=== PATIENT | male | born 1945 | race Hispanic/Latino ===

== ENCOUNTER 2018-02-26 17:31 | Emergency (ER) | payer MEDICARE, MEDICAID ==
[2018-02-26 17:46] VITALS: BMI 26.6
--- NOTE | 2018-02-26 17:59 | C.PDOC ---
History Of Present Illness 72 y/o male with PMHx of seizure disorder, dementia, and Parkinsons, [facility] in [facility] ambulance [facility] for evaluation s/p witnessed seizure. On arrival patient is awake, alert, able to follow some commands. He denies any pain. States he took his VPA and Topamax this morning. Patient able to verbalize his own name and answers that he is at the hospital. Unable to obtain any other history from patient secondary to dementia. As per [facility] group sales representative ([phone]), patient has seemed progressively weaker over the past couple days. Today they were walking up stairs and as per nursing staff, patient was so weak he could not walk up, and they caught him before he could fall. Patient stated that he had a seizure but there was no seizure-like activity noted per nursing staff. PMD: Dr. Her Time Seen by Provider: 02/26/18 17:59 Chief Complaint (Nursing): Seizure History Per: Patient History/Exam Limitations: other (dementia) Recent Seizure Activity Began: Unknown Additional History Per: EMS, [facility] Past Medical History Reviewed: Historical Data, Nursing Documentation, Vital Signs Vital Signs: Last Vital Signs Temp 97.7 F 02/26/18 17:46 Pulse 90 02/26/18 17:46 Resp 18 02/26/18 17:46 BP 136/73 02/26/18 17:46 Pulse Ox 100 02/26/18 17:46 - Medical History PMH: Anxiety, Asthma, Dementia, Hepatitis (B), Hypercholesterolemia, Parkinson's Disease, Seizures Surgical History: No Surg Hx Family History: States: No Known Family Hx - Social History Hx Tobacco Use: No Hx Alcohol Use: No Hx Substance Use: No - Immunization History Hx Tetanus Toxoid Vaccination: No Hx Influenza Vaccination: No Hx Pneumococcal Vaccination: No Review Of Systems Review Of Systems: ROS cannot be obtained secondary to pt's inabilty to answer questions. Physical Exam - Physical Exam Appears: Non-toxic, No Acute Distress Skin: Warm, Dry Head: Atraumatic, Normacephalic Eye(s): bilateral: Normal Inspection, PERRL, EOMI Nose: Normal, No Flaring, No Discharge Throat: No Erythema Neck: Trachea Midline, Supple, Other (No meningeal signs- negative kernig's and brudzinskis) Chest: Symmetrical Cardiovascular: Rhythm Regular, Other (No rub) Respiratory: No Rales, No Rhonchi, No Wheezing Gastrointestinal/Abdominal: Soft, No Tenderness, No Distention Back: Normal Inspection, No CVA Tenderness Extremity: Bilateral: Normal Color And Temperature Pulses: Left Dorsalis Pedis: Normal, Right Dorsalis Pedis: Normal Neurological/Psych: Normal Cranial Nerves, No Cerebellar Signs, Normal Sensation, Other (Awake, Alert, responds to some commands) Disoriented To: Time, Situation Gait: With Assistance ED Course And Treatment - Laboratory Results Result Diagrams: 02/26/18 18:29 02/26/18 18:29 O2 Sat by Pulse Oximetry: 100 (RA) Pulse Ox Interpretation: Normal Medical Decision Making Medical Decision Making: Impression: 72 y/o M with pmhx of dementia, seizure disorder, Parkinson's, p/w complaint of seizure. As per [facility] staff, no seizure activity witnessed. They note patient seems progressively weaker over the past few days. No enuresis or tongue biting noted. Plan: Blood work UA EKG Chest x-ray CT Head CT C-spine IV fluids CXR: No active disease. EKG: Normal sinus rhythm at 86 bpm, no STEMI CT Head: 1. There is generalized parenchymal atrophy noted as demonstrated by symmetrical dilatation of ventricles and sulci. 2. Chronic periventricular and subcortical microvascular disease is seen. 3. No acute intracranial pathology. CT C-spine: 1. No fracture or spondylolisthesis. 2. Straightening of cervical lordosis is seen, suggesting muscular spasm. 3. Severe multilevel spondylosis. 4. Multiple mild chronic fractures involving C3 to C6 vertebral bodies. 2148 labs largely unremarkable Endorsed to Dr. Cartagena for possible observation given depakote level cannot be drawn at this time: Per Dr. Cartagena pt is clear for d/c home: Pt is feeling better and clear, regardless of current depakote level. Endorsed to Dr. Sales regarding depakote level availability- Per Neuro Pt is clear for d/c currently with current depakote dosage of 500mg TID, no changes at this time. Depakote level drawn. Per Neuro and IM: pt is clear for d/c. Per Belt Loop Machine Operator pt is at baseline mentation at this time. will check if patient can walk at baseline ? weakness 2216 ambulated at baseline w/ walker per Belt Loop Machine Operator: clear for d/c home. Disposition - Disposition Disposition Time: 21:53 Condition: GOOD Forms: [facility] (Yi) - Clinical Impression Clinical Impression: Seizure-like activity - Scribe Statement The provider has reviewed the documentation as recorded by the Scribe (Ellen Vasques) Provider Attestation: All medical record entries made by the Scribe were at my direction and personally dictated by me. I have reviewed the chart and agree that the record accurately reflects my personal performance of the history, physical exam, medical decision making, and the department course for this patient. I have also personally directed, reviewed, and agree with the discharge instructions and disposition.
[2018-02-26] MEDS ORDERED: Sodium Chloride 0.9% 1,000 ML IV SCH (18:15)
[2018-02-26 18:34] LABS: BASO % 0.3 % (0.0-2.0); EOS # 0.3 K/uL (0.0-0.7); EOS % 3.7 % (0.0-4.0); HEMOGLOBIN 13.3 g/dL (12.0-18.0); LYMPH # 4.1 K/uL (1.0-4.3); LYMPH % 51.7 % (20.0-40.0); MEAN CELL VOLUME 92.4 fL (80.0-94.0); MEAN CORPUSCULAR HEMOGLOBIN 31.2 pg (27.0-31.0); MEAN CORPUSCULAR HGB CONC 33.7 g/dL (33.0-37.0); MEAN PLATELET VOLUME 8.8 fL (7.2-11.7); MONO # 0.8 K/uL (0.0-0.8); MONO % 9.6 % (0.0-10.0); NEUT # 2.7 K/uL (1.8-7.0); NEUT % 34.7 % (50.0-75.0); NRBC % 0.1 % (0.0-2.0); RBC 4.26 Mil/uL (4.40-5.90); RED CELL DISTRIBUTION WIDTH 13.9 % (11.5-14.5); WHITE BLOOD COUNT 7.9 K/uL (4.8-10.8)
--- NOTE | 2018-02-26 18:37 | RAD ---
Date of service: 02/26/2018 HISTORY: fall COMPARISON: No prior. TECHNIQUE: Chest PA and lateral FINDINGS: LUNGS: Left basilar atelectasis/scarring. No focal consolidation. PLEURA: No significant pleural effusion identified. No pneumothorax apparent. CARDIOVASCULAR: Aortic atherosclerotic calcifications. Cardiomediastinal silhouette at the upper limits of normal in size. OSSEOUS STRUCTURES: Spinal degenerative changes. VISUALIZED UPPER ABDOMEN: Normal. OTHER FINDINGS: None. IMPRESSION: No active disease.
[2018-02-26 19:32] LABS: ALB/GLOB RATIO 1.3 (1.0-2.1); ALBUMIN 4.1 g/dL (3.5-5.0); ALT/SGPT 10 U/L (21-72); AST/SGOT 43 U/L (17-59); BLOOD UREA NITROGEN 20 mg/dL (9-20); CALCIUM 9.3 mg/dl (8.6-10.4); GFR NON-AFRICAN AMERICAN > 60
[2018-02-26 19:41] LABS: B-TYPE NATRIURETIC PEPTIDE 110 pg/mL (0-900)
[2018-02-26 20:39] LABS: URINE BILIRUBIN NEGATIVE (NEGATIVE); URINE BLOOD NEGATIVE (NEGATIVE); URINE CLARITY Clear (Clear); URINE COLOR Yellow (YELLOW); URINE GLUCOSE (UA) NORMAL (Normal); URINE LEUKOCYTE ESTERASE NEG Leu/uL (Negative); URINE PROTEIN NEGATIVE (NEGATIVE); URINE UROBILINOGEN NORMAL mg/dL (0.2-1.0)
[2018-02-26] MEDS ORDERED: Divalproex 500 mg ER Tab PO ONE (21:40)
[2018-02-26] MEDS ORDERED: Divalproex 500 mg DR Tab PO ONE (21:48)
[2018-02-26 22:07] VITALS: BP 139/90; PULSE 82; RESP 16; TEMP 97.6
[2018-02-26 22:19] VITALS: O2SAT 100
--- NOTE | 2018-02-27 13:51 | CT ---
Date of service: 02/26/2018 PROCEDURE: CT HEAD WITHOUT CONTRAST. HISTORY: fall COMPARISON: None available. TECHNIQUE: Axial computed tomography images were obtained through the head/brain without intravenous contrast. Radiation dose: Total exam DLP = 1191.91 mGy-cm. This CT exam was performed using one or more of the following dose reduction techniques: Automated exposure control, adjustment of the mA and/or kV according to patient size, and/or use of iterative reconstruction technique. FINDINGS: HEMORRHAGE: No intracranial hemorrhage. BRAIN: Good corticomedullary differentiation is seen. Proportional, diffuse expansion of the ventriculosulcal and cisternal spaces is appreciated with white matter lucency compatible with diffuse cerebral atrophy and chronic microangiopathy. No suspicious extra-axial fluid collection is identified and the midline brain anatomy appears grossly nonfocal as imaged. There is no mass effect throughout. VENTRICLES: Unremarkable. No hydrocephalus. CALVARIUM: No destructive bony lesion or displaced fracture identified including through the skullbase. PARANASAL SINUSES: Unremarkable as visualized. No significant inflammatory changes. MASTOID AIR CELLS: Unremarkable as visualized. No inflammatory changes. OTHER FINDINGS: None. IMPRESSION: Mild age-related degenerative changes are identified which appear age-appropriate. No definite acute intracranial findings. No fracture identified. Concordant preliminary report from [facility], 02/26/2018.
--- NOTE | 2018-02-27 14:02 | CT ---
Date of service: 02/26/2018 PROCEDURE: CT Cervical Spine without contrast HISTORY: fall COMPARISON: None available. TECHNIQUE: Axial computed tomography images were obtained of the cervical spine without the use of intravenous contrast. Coronal and sagittal reformatted images were created and reviewed. Radiation dose: Total exam DLP = 527.37 mGy-cm. This CT exam was performed using one or more of the following dose reduction techniques: Automated exposure control, adjustment of the mA and/or kV according to patient size, and/or use of iterative reconstruction technique. FINDINGS: VERTEBRAE: No fracture. Lordotic curvature is central weighted mildly by likely calcified thoracic spinal deformity.. No destructive bony lesion. DISCS/SPINAL CANAL/NEURAL FORAMINA: Multilevel degenerative spondylosis appreciate well as facet joint arthropathy. The C1-2 articulation also appears degenerated with the craniocervical junction intact. At C2-3, a disc osteophyte complex encroaches ventral nerve roots without causing significant central canal stenosis. Mild right but no left degenerative neural foraminal stenosis. At C3-4, there is an irregular disc osteophyte complex greater the right than left sides causing moderate central canal stenosis. Uncovertebral and facet arthropathy result in a severe right and moderate left degenerative neural foraminal stenosis.. At C4-5, an additional disc osteophyte complex is appreciated with small central disc protrusion abutting the ventral cord most likely. This results in a midline central stenosis with the lateral portions more patent than the midline. Uncovertebral and facet arthropathy causes moderate right and mild left degenerative neural foraminal stenosis At C5-6, a minimal disc osteophyte complex is appreciate without stenosis resulting. Moderate right and mild left degenerative neural foraminal stenoses are caused by osteophytes. At C6-7, a circumferential disc osteophyte complex is appreciate without significant central stenosis. Moderate right and moderate to severe left degenerative neural foraminal stenosis appreciated on degenerative basis. At C7-T1, there is a borderline right neural foraminal stenosis due to uncovertebral osteophytosis with none on the left. No disc herniation or central canal stenosis. PARASPINAL SOFT TISSUES: Unremarkable. OTHER FINDINGS: None. IMPRESSION: No acute fracture or spondylolisthesis identified. Advanced multilevel uncovertebral and facet joint degenerative changes result in variable neural foraminal stenosis including severe right C4 and moderate to severe left C7 root foraminal stenoses. A disc osteophyte complex is regular at C3-4 resulting in moderate central canal stenosis. Lesser findings are as discussed above.
[2018-02-27] MEDS ORDERED: Divalproex 500 mg ER Tab PO ONE (21:23)
--- NOTE | 2018-03-01 12:16 | CARD ---
APPROVED REPORT Date of service: 02/26/2018 EKG Measurement Heart [id number] <Conclusion> Normal sinus rhythm Normal ECG
== END 2018-02-26 22:41 | disposition home or self-care (01) ==
LOC: C.ER 17:31
DX: G40.909 Epilepsy, unspecified, not intractable, without status epilepticus (principal)
CPT/HCPCS: 70450; 71046; 72125; 80053; 80164; 81001; 82948; 83880; 84443; 84484; 85025; 93005; 96360; 96361; 99285; J7030